=== PATIENT | male | born 1985 | race Caucasian/White ===

== ENCOUNTER 2017-01-31 20:36 | Emergency (ER) | payer OTHER ==
[~2017-01-31] VITALS: Ht 175.3 cm; Wt 68.9 kg
[2017-01-31 21:20] LABS: microscopic required? NO
[2017-01-31 21:26] LABS: urine erythrocyte NEGATIVE (NEGATIVE)
[2017-01-31 21:30] LABS: BASOPHIL % 0.3 % (0-2); PLATELET COUNT 177 x10^3mcL (130-400); RED CELL DISTRIBUTION WIDTH 12.8 % (11.5-14.5)
[2017-01-31 21:34] LABS: CARBON DIOXIDE 27.3 mmol/L (21-32); CHLORIDE SERUM 102 mmol/L (98-107); CREATININE SERUM 1.1 mg/dL (0.7-1.3); GFR1 > 60 mL/min; GLUCOSE SERUM 101 mg/dL (74-106); POTASSIUM SERUM 3.6 mmol/L (3.5-5.1); SODIUM SERUM 141 mmol/L (136-145)
[2017-01-31 21:39] LABS: ALBUMIN 4.2 g/dL (3.4-5.0); TOTAL PROTEIN, SERUM 7.8 g/dL (6.4-8.2)
[2017-01-31 21:40] LABS: ALKALINE PHOSPHATASE 72 U/L (46-116); ALT/SGPT 36 U/L (16-63); AMYLASE 37 U/L (25-115); AST/SGOT 22 U/L (15-37); LIPASE 105 IU/L (73-393)
[2017-01-31 22:32] VITALS: BP 112/73
== END 2017-01-31 22:32 | disposition home or self-care (01) ==
LOC: ED 20:36
PROVIDERS: Emergency Medicine
DX: K59.00 Constipation, unspecified (principal)
CPT/HCPCS: 36415; 83880; J1885

== ENCOUNTER 2017-02-06 00:10 | Emergency (ER) | payer OTHER ==
[2017-02-06 01:07] VITALS: BP 128/83
== END 2017-02-06 01:07 | disposition home or self-care (01) ==
LOC: ED 00:10
DX: R07.89 Other chest pain (principal); F12.10 Cannabis abuse, uncomplicated